=== PATIENT | male | born 1980 ===

== ENCOUNTER 2017-05-28 08:47 | Inpatient (IN) | payer OTHER ==
[2017-05-28] MEDS ORDERED: Sodium Chloride 0.9% 1,000 ML IV ONE (09:21)
--- NOTE | 2017-05-28 09:22 | C.PDOC ---
History Of Present Illness 36 y/o male presents to ED with c/o abdominal pain starting at 0200 today. Patient reports pain started in the epigastric area and was associated with nausea. Patient states pain gradually worsened and is now located in RLQ. Denies vomiting, diarrhea, or constipation. Patient states he could not fully void when urinating. Denies any groin pain. Time Seen by Provider: 05/28/17 09:07 Chief Complaint (Nursing): Abdominal Pain History Per: Patient History/Exam Limitations: no limitations Onset/Duration Of Symptoms: Days Current Symptoms Are (Timing): Still Present Location Of Pain/Discomfort: RLQ Radiation Of Pain To:: None Quality Of Discomfort: "Pain" Associated Symptoms: Urinary Symptoms. denies: Fever, Chills, Vomiting, Diarrhea, Back Pain Recent travel outside of the [place]: No Past Medical History Reviewed: Historical Data, Nursing Documentation, Vital Signs Vital Signs: Last Vital Signs Temp 98.3 F 05/28/17 13:10 Pulse 72 05/28/17 13:10 Resp 16 05/28/17 13:10 BP 125/80 05/28/17 13:10 Pulse Ox 98 05/28/17 13:17 - Medical History PMH: No Chronic Diseases Surgical History: No Surg Hx Family History: States: Unknown Family Hx - Social History Hx Alcohol Use: Yes Hx Substance Use: No - Immunization History Hx Tetanus Toxoid Vaccination: (unk) Hx Influenza Vaccination: No Hx Pneumococcal Vaccination: (unk) Review Of Systems Except As Marked, All Systems Reviewed And Found Negative. Constitutional: Negative for: Fever, Chills Cardiovascular: Negative for: Chest Pain Respiratory: Negative for: Cough, Shortness of Breath, Wheezing Gastrointestinal: Positive for: Abdominal Pain. Negative for: Vomiting, Diarrhea Genitourinary: Negative for: Dysuria, Frequency, Hematuria, Scrotal Pain Skin: Negative for: Rash Physical Exam - Physical Exam Appears: Non-toxic, No Acute Distress Skin: Normal Color, Warm, Dry Head: Atraumatic, Normacephalic Eye(s): bilateral: Normal Inspection Oral Mucosa: Moist Neck: Normal ROM Chest: Symmetrical Cardiovascular: Rhythm Regular, No Murmur Respiratory: Normal Breath Sounds, No Rales, No Rhonchi, No Wheezing Gastrointestinal/Abdominal: Bowel Sounds (active), Soft, Tenderness (RLQ), No Distention, No Guarding, No Rebound Back: Normal Inspection, No CVA Tenderness Male Genital: Normal Inspection, No Testicular Swelling, No Scrotal Swelling Extremity: Bilateral: Atraumatic, Normal Color And Temperature, Normal ROM Neurological/Psych: Oriented x3, Normal Speech Gait: Steady ED Course And Treatment - Laboratory Results Result Diagrams: 05/28/17 09:53 05/28/17 09:53 Lab Interpretation: No Acute Changes O2 Sat by Pulse Oximetry: 98 (RA) Pulse Ox Interpretation: Normal - CT Scan/US CT ABDOMEN/PELVIS Other Rad Studies (CT/US): Read By Radiologist, Radiology Report Reviewed CT/US Interpretation: FINDINGS: LOWER THORAX: Mild bibasilar atelectasis. No evidence of basilar effusion or pneumothorax. There is a small hiatal hernia. Heart size is borderline/ mildly enlarged. No significant pericardial effusion. LIVER: Liver is enlarged measuring nearly 20 cm in CC dimension. No obvious hepatic mass collection or calcification. Mild fatty hepatic infiltration. Portal and splenic veins are opacified. GALLBLADDER AND BILE DUCTS: Gallbladder is physiologically distended. No evidence of intraluminal gallbladder calculi. PANCREAS: The pancreas appears grossly unremarkable without mass collection calcification. Pancreatic duct is visible but does not appear significantly dilated. SPLEEN: Spleen exhibits normal size and attenuation pattern without mass collection or calcification. ADRENALS: There are no adrenal lesions. KIDNEYS AND URETERS: Kidneys exhibit symmetric nephrograms. No evidence of nephrolithiasis or hydronephrosis. BLADDER: Urinary bladder is incompletely distended which may account for minimal thick- walled appearance. Muscular hypertrophy may contribute. Cystitis should be excluded given the patient's history of painful urination. REPRODUCTIVE: Prostate gland exhibits normal size measuring approximately 3.3 cm in transverse dimension. APPENDIX: . There is an approximately at 8.8 by 5.6 mm elliptical shaped appendicolith within the distal aspect of the appendix with what appears to represent mild wall thickening - wall edema at and dilatation within the distal tip of the appendix, (distal to the appendix). The at tip of the appendix measures approximately 12.7 mm in greatest dimension. Findings most consistent with mild early acute appendicitis. Note these findings were discussed with JORGE Barber at approximately 11:50 a.m. with written down and read back verification. BOWEL: Aeration of the bowel is limited due to the lack of oral contrast material. Stomach is incompletely distended which may account for slight thick-walled appearance. . Visualized loops of small bowel exhibit normal contour and caliber. No evidence acute mechanical small bowel obstruction. Moderate amount of stool is seen within cecum and ascending colon suggesting mild fecal retention. PERITONEUM: Unremarkable. No fluid collection. No free air. Tiny a fat containing umbilical hernia. . Small bilateral fat containing inguinal hernias. Mild diastases of the abdominus rectus musculature. LYMPH NODES: Unremarkable. No enlarged lymph nodes. VASCULATURE: Unremarkable. No aortic aneurysm. BONES: No fracture or destructive lesion. OTHER FINDINGS: None. IMPRESSION: Findings consistent with mild early acute appendicitis cyst within the head as above. Hepatomegaly. Mild fatty hepatic infiltration. 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 Patient for Dr Alcaraz service Disposition - Disposition Disposition: HOSPITALIZED Disposition Time: 12:08 Condition: STABLE - POA Present On Arrival: None - Clinical Impression Clinical Impression: Appendicitis - PA / HOGSHEAD DUMPER / Resident Statement MD/DO has reviewed & agrees with the documentation as recorded. - Scribe Statement The provider has reviewed the documentation as recorded by the Tysonibkinsey LIMON All medical record entries made by the Jake were at my direction and personally dictated by me. I have reviewed the chart and agree that the record accurately reflects my personal performance of the history, physical exam, medical decision making, and the department course for this patient. I have also personally directed, reviewed, and agree with the discharge instructions and disposition. Decision To Admit - Pt Status Changed To: Hospital Disposition Of: Inpatient - Admit Certification Admit to Inpatient:: After my assessment, the patient will require hospitalization for at least two midnights. This is because of the severity of symptoms shown, intensity of services needed, and/or the medical risk in this patient being treated as an outpatient. - InPatient: Physician Admission Certification:: patient with acute appendicitis requires surgical intervention - . Bed Request Type: Regular Admitting Physician: Dayn Alcaraz Patient Diagnosis: Appendicitis
[2017-05-28] MEDS ORDERED: Sodium Chloride 0.9% 1,000 ML ONE ×2 (09:54→12:41)
[2017-05-28 10:02] LABS: BASO % 0.4 % (0.0-2.0); EOS % 0.4 % (0.0-4.0); LYMPH # 1.3 K/uL (1.0-4.3); LYMPH % 12.9 % (20.0-40.0); MEAN CELL VOLUME 91.6 fL (80.0-94.0); MEAN CORPUSCULAR HEMOGLOBIN 30.9 pg (27.0-31.0); MEAN CORPUSCULAR HGB CONC 33.7 g/dL (33.0-37.0); MEAN PLATELET VOLUME 7.9 fL (7.2-11.7); MONO # 0.7 K/uL (0.0-0.8); MONO % 6.7 % (0.0-10.0); NEUT # 7.8 K/uL (1.8-7.0); NEUT % 79.6 % (50.0-75.0); RBC 4.86 Mil/uL (4.40-5.90); RED CELL DISTRIBUTION WIDTH 13.9 % (11.5-14.5); WHITE BLOOD COUNT 9.8 K/uL (4.8-10.8)
[2017-05-28 10:09] LABS: ALBUMIN 4.4 g/dL (3.5-5.0)
[2017-05-28 10:11] LABS: URINE BILIRUBIN NEGATIVE (NEGATIVE); URINE BLOOD 2+ (NEGATIVE); URINE CLARITY Clear (Clear); URINE COLOR Yellow (YELLOW); URINE GLUCOSE (UA) NORMAL (Normal); URINE LEUKOCYTE ESTERASE NEG Leu/uL (Negative); URINE NITRATE NEGATIVE (NEGATIVE); URINE PROTEIN NEGATIVE (NEGATIVE); URINE UROBILINOGEN NORMAL mg/dL (0.2-1.0)
[2017-05-28 10:12] LABS: GFR AFRICAN-AMERICAN > 60; GFR NON-AFRICAN AMERICAN > 60
[2017-05-28 10:13] LABS: ALB/GLOB RATIO 1.2 (1.0-2.1); ALT/SGPT 248 U/L (21-72); AST/SGOT 93 U/L (17-59); BLOOD UREA NITROGEN 14 mg/dL (9-20); CALCIUM 9.7 mg/dl (8.6-10.4); LIPASE 41 U/L (23-300)
[2017-05-28] MEDS ORDERED: Iohexol 300 100 ML IJ ONE (11:07)
--- NOTE | 2017-05-28 11:57 | CT ---
PROCEDURE: CT scan abdomen and pelvis dated 05/28/2017 HISTORY: Right lower quadrant abdominal pain. Technologist notation indicates right-sided flank pain and painful urination. COMPARISON: No prior TECHNIQUE: Contiguous axial images of the abdomen and pelvis performed following intravenous injection of 100 cc of Omnipaque 300 contrast material. . Coronal and Sagittal reformats generated. Radiation dose: Total exam DLP = 978.65 mGy-cm. This CT exam was performed using one or more of the following dose reduction techniques: Automated exposure control, adjustment of the mA and/or kV according to patient size, and/or use of iterative reconstruction technique. FINDINGS: LOWER THORAX: Mild bibasilar atelectasis. No evidence of basilar effusion or pneumothorax. There is a small hiatal hernia. Heart size is borderline/ mildly enlarged. No significant pericardial effusion. LIVER: Liver is enlarged measuring nearly 20 cm in CC dimension. No obvious hepatic mass collection or calcification. Mild fatty hepatic infiltration. Portal and splenic veins are opacified. GALLBLADDER AND BILE DUCTS: Gallbladder is physiologically distended. No evidence of intraluminal gallbladder calculi. PANCREAS: The pancreas appears grossly unremarkable without mass collection calcification. Pancreatic duct is visible but does not appear significantly dilated SPLEEN: Spleen exhibits normal size and attenuation pattern without mass collection or calcification. ADRENALS: There are no adrenal lesions. KIDNEYS AND URETERS: Kidneys exhibit symmetric nephrograms. No evidence of nephrolithiasis or hydronephrosis. BLADDER: Urinary bladder is incompletely distended which may account for minimal thick-walled appearance. Muscular hypertrophy may contribute. Cystitis should be excluded given the patient's history of painful urination. REPRODUCTIVE: Prostate gland exhibits normal size measuring approximately 3.3 cm in transverse dimension. APPENDIX: . There is an approximately at 8.8 by 5.6 mm elliptical shaped appendicolith within the distal aspect of the appendix with what appears to represent mild wall thickening - wall edema at and dilatation within the distal tip of the appendix, (distal to the appendix). The at tip of the appendix measures approximately 12.7 mm in greatest dimension. Findings most consistent with mild early acute appendicitis. Note these findings were discussed with JORGE Barber at approximately 11:50 a.m. with written down and read back verification. BOWEL: Aeration of the bowel is limited due to the lack of oral contrast material. Stomach is incompletely distended which may account for slight thick-walled appearance. . Visualized loops of small bowel exhibit normal contour and caliber. No evidence acute mechanical small bowel obstruction. Moderate amount of stool is seen within cecum and ascending colon suggesting mild fecal retention. PERITONEUM: Unremarkable. No fluid collection. No free air. Tiny a fat containing umbilical hernia. . Small bilateral fat containing inguinal hernias. Mild diastases of the abdominus rectus musculature LYMPH NODES: Unremarkable. No enlarged lymph nodes. VASCULATURE: Unremarkable. No aortic aneurysm. BONES: No fracture or destructive lesion. OTHER FINDINGS: None. IMPRESSION: Findings consistent with mild early acute appendicitis cyst within the head as above. Hepatomegaly. Mild fatty hepatic infiltration. Mild diastases of the abdominus rectus musculature
--- NOTE | 2017-05-28 12:25 | CP.PCM.HP ---
History of Present Illness - History of Present Illness History of Present Illness: HISTORY AND PHYSICAL FOR KENJIEMMA 36M presents to [facility] for abdominal pain that started 2am 05/28/17. Patient states the pain is epigastric and but is now subdue and in the RLQ. Patient denies nausea and vomiting, denies fevers, chills. Admits to on episode of diarrhea. He has never had this type of pain before. Patient last ate at 7am. PMH: denies PSH: denies Social: admits to smoking and drinking alcohol socially Allergies: NKDA Present on Admission - Present on Admission Any Indicators Present on Admission: No Past Patient History - Past Social History Smoking Status: Light Smoker < 10 Cigarettes Daily - PSYCHIATRIC Hx Substance Use: No - SURGICAL HISTORY Hx Surgeries: No - ANESTHESIA Hx Anesthesia: No Meds Allergies/Adverse Reactions: Allergies Allergy/AdvReac Type Severity Reaction Status Date / Time No Known Allergies Allergy Unverified 05/28/17 09:07 Physical Exam - Constitutional Appears: Non-toxic, No Acute Distress - Head Exam Head Exam: ATRAUMATIC - Eye Exam Eye Exam: EOMI, PERRL - ENT Exam ENT Exam: Mucous Membranes Moist - Respiratory Exam Respiratory Exam: Clear to Auscultation Bilateral, NORMAL BREATHING PATTERN - Cardiovascular Exam Cardiovascular Exam: REGULAR RHYTHM, +S1, +S2 - GI/Abdominal Exam GI & Abdominal Exam: Soft, Tenderness (RLQ tenderness). absent: Distended, Firm , Guarding, Rebound, Rigid - Extremities Exam Extremities exam: Negative for: pedal edema, tenderness - Neurological Exam Neurological exam: Alert, Oriented x3 - Psychiatric Exam Psychiatric exam: Normal Affect, Normal Mood - Skin Skin Exam: Dry, Intact, Normal Color, Warm Results - Vital Signs Recent Vital Signs: Last Vital Signs Temp 97.5 F L 05/28/17 09:01 Pulse 72 05/28/17 09:01 Resp 20 05/28/17 09:01 BP 159/94 H 05/28/17 09:01 Pulse Ox 98 05/28/17 12:09 - Labs Result Diagrams: 05/28/17 09:53 05/28/17 09:53 Assessment & Plan - Assessment and Plan (Free Text) Assessment: 36M presents with acute appendicitis CT: large appendicolith, inflamed appendix Plan: - NPO, pain control - Anti-emetic, Anti-biotics - PT/PTT, Type and screen - Booked and consented for lap appendectomy possible open today afternoon Discussed with Dr. Lissa Newman, PGY1
[2017-05-28 12:33] LABS: PROTHROMBIN TIME 11.6 SECONDS (9.7-12.2)
[2017-05-28] MEDS ORDERED: Morphine 4 MG/ML VIAL IVP PRN (12:37)
[2017-05-28] MEDS: Piperacillin/Tazobact 3.375 GM in Sodium Chloride 100 ML IVPB SCH ×2 (12:40→20:09)
[2017-05-28] MEDS: Sodium Chloride 0.9% 1,000 ML IV SCH ×2 (12:40→20:08)
[2017-05-28] MEDS ORDERED: Piperacillin/Tazobact 3.375 gm 100 ML IVPB ONE (12:41)
[2017-05-28] MEDS ORDERED: ceFAZolin IV 1 gm in Dextrose 1 GM/50 ML BAG IVPB ONE (17:26)
[2017-05-28] MEDS ORDERED: Bupivacaine-Epi 0.5%-1:200,000 PF Inj ONE (17:26)
[2017-05-28] MEDS ORDERED: Lactated Ringer's 1,000 ML IV ONE ×2 (17:30→18:15)
[2017-05-28] MEDS ORDERED: Midazolam 2 MG/2 ML VIAL ONE (17:34)
[2017-05-28] MEDS ORDERED: Propofol 10 mg/ml Inj (20 ML) ONE (17:35)
[2017-05-28] MEDS ORDERED: Succinylcholine Chloride 20 mg/ml Syr (5 ml) IV ONE (18:37)
[2017-05-28] MEDS ORDERED: Rocuronium 10 mg/ml (5 ml) ONE (18:37)
[2017-05-28] MEDS ORDERED: HYDROmorphone 0.5 mg/0.5 ml ISec IVP PRN (18:39)
--- NOTE | 2017-05-28 18:39 | PCM.SURG1 ---
Surgeon's Initial Post Op Note - Surgeon's Notes Surgeon: Lissa Dean Of Men: Benson Newman Pre-Operative Diagnosis: Acute appendicitis Operative Findings: inflamed appendix Post-Operative Diagnosis: acute appendicitis Operation Performed: laparoscopic appendectomy Specimen/Specimens Removed: appendix Estimated Blood Loss: EBL {In ML}: 15 Date of Surgery/Procedure: 05/28/17 Time of Surgery/Procedure: 17:45
[2017-05-28] MEDS: Lactated Ringer's 1,000 ML IV SCH (20:09)
[2017-05-29] MEDS: Lactated Ringer's 1,000 ML IV SCH (03:32)
[2017-05-29] MEDS: Piperacillin/Tazobact 3.375 GM in Sodium Chloride 100 ML IVPB SCH ×2 (03:53→13:27)
[2017-05-29 08:42] VITALS: BP 102/58; PULSE 89; RESP 18; TEMP 98.4; O2SAT 95
[2017-05-29] MEDS ORDERED: Lactated Ringer's 1,000 ML IV SCH (09:14)
[2017-05-29] MEDS ORDERED: Oxycodone/Acetaminophen 5/325 mg Tab PO PRN (09:14)
--- NOTE | 2017-05-29 22:07 | CP.PCM.DIS ---
Provider - Provider Date of Admission: 05/28/17 12:09 Attending physician: Dany Alcaraz MD Primary care physician: None Consults: None Time Spent in preparation of Discharge (in minutes): 60 Diagnosis - Discharge Diagnosis (1) S/P appendectomy Status: Acute Hospital Course - Lab Results Lab Results: Most Recent Lab Values WBC 9.8 K/uL (4.8-10.8) 05/28/17 09:53 RBC 4.86 Mil/uL (4.40-5.90) 05/28/17 09:53 Hgb 15.0 g/dL (12.0-18.0) 05/28/17 09:53 Hct 44.5 % (35.0-51.0) 05/28/17 09:53 MCV 91.6 fL (80.0-94.0) 05/28/17 09:53 MCH 30.9 pg (27.0-31.0) 05/28/17 09:53 MCHC 33.7 g/dL (33.0-37.0) 05/28/17 09:53 RDW 13.9 % (11.5-14.5) 05/28/17 09:53 Plt Count 244 K/uL (130-400) 05/28/17 09:53 MPV 7.9 fL (7.2-11.7) 05/28/17 09:53 Neut % (Auto) 79.6 % (50.0-75.0) H 05/28/17 09:53 Lymph % (Auto) 12.9 % (20.0-40.0) L 05/28/17 09:53 [place] % (Auto) 6.7 % (0.0-10.0) 05/28/17 09:53 Eos % (Auto) 0.4 % (0.0-4.0) 05/28/17 09:53 Baso % (Auto) 0.4 % (0.0-2.0) 05/28/17 09:53 Neut # 7.8 K/uL (1.8-7.0) H 05/28/17 09:53 Lymph # 1.3 K/uL (1.0-4.3) 05/28/17 09:53 [place] # 0.7 K/uL (0.0-0.8) 05/28/17 09:53 Eos # 0.0 K/uL (0.0-0.7) 05/28/17 09:53 Baso # 0.0 K/uL (0.0-0.2) 05/28/17 09:53 PT 11.6 SECONDS (9.7-12.2) 05/28/17 12:15 INR 1.0 05/28/17 12:15 APTT 33 SECONDS (21-34) 05/28/17 12:15 Sodium 136 mmol/L (132-148) 05/28/17 09:53 Potassium 3.9 mmol/L (3.6-5.2) 05/28/17 09:53 Chloride 99 mmol/L (98-107) 05/28/17 09:53 Carbon Dioxide 25 mmol/L (22-30) 05/28/17 09:53 Anion Gap 16 (10-20) 05/28/17 09:53 BUN 14 mg/dL (9-20) 05/28/17 09:53 Creatinine 0.7 MG/DL (0.8-1.5) L 05/28/17 09:53 Est GFR ( Amer) > 60 05/28/17 09:53 Est GFR (Non-Af Amer) > 60 05/28/17 09:53 Random Glucose 113 mg/dL (75-110) H 05/28/17 09:53 Calcium 9.7 mg/dl (8.6-10.4) 05/28/17 09:53 Total Bilirubin 0.7 mg/dL (0.2-1.3) 05/28/17 09:53 AST 93 U/L (17-59) H 05/28/17 09:53 ALT 248 U/L (21-72) H 05/28/17 09:53 Alkaline Phosphatase 113 U/L (38-126) 05/28/17 09:53 Total Protein 8.0 g/dL (6.3-8.3) 05/28/17 09:53 Albumin 4.4 g/dL (3.5-5.0) 05/28/17 09:53 Globulin 3.5 gm/dL (2.2-3.9) 05/28/17 09:53 Albumin/Globulin Ratio 1.2 (1.0-2.1) 05/28/17 09:53 Lipase 41 U/L (23-300) 05/28/17 09:53 Urine Color Yellow (YELLOW) 05/28/17 09:53 Urine Clarity Clear (Clear) 05/28/17 09:53 Urine pH 5.0 (5.0-8.0) 05/28/17 09:53 Ur Specific [place] 1.017 (1.003-1.030) 05/28/17 09:53 Urine Protein Negative mg/dL (NEGATIVE) 05/28/17 09:53 Urine Glucose (UA) Normal mg/dL (Normal) 05/28/17 09:53 Urine Ketones Negative mg/dL (NEGATIVE) 05/28/17 09:53 Urine Blood 2+ (NEGATIVE) H 05/28/17 09:53 Urine Nitrate Negative (NEGATIVE) 05/28/17 09:53 Urine Bilirubin Negative (NEGATIVE) 05/28/17 09:53 Urine Urobilinogen Normal mg/dL (0.2-1.0) 05/28/17 09:53 Ur Leukocyte Esterase Neg Tomi/uL (Negative) 05/28/17 09:53 Urine WBC (Auto) < 1 /hpf (0-5) 05/28/17 09:53 Urine RBC (Auto) 8 /hpf (0-3) H 05/28/17 09:53 Blood Type O POSITIVE 05/28/17 13:09 Antibody Screen Negative 05/28/17 13:09 - Hospital Course Hospital Course: 36M admitted on 05/28 due to acute appendicitis. Pt taken to OR on 05/28 for appendectomy. Pt tolerated procedure well. No complications. POD#1 s/p appendectomy pt stable and ready for discharge home. Pt given pain prescription and work note for 2 weeks off to recuperate. - Date & Time of H&P Date of H&P: 05/28/17 Time of H&P: 12:21 Discharge Exam - Head Exam Head Exam: ATRAUMATIC, NORMAL INSPECTION, NORMOCEPHALIC - Eye Exam Eye Exam: EOMI, Normal appearance - Neck Exam Neck exam: Full Rom, Normal Inspection - Respiratory Exam Respiratory Exam: Clear to PA & Lateral, NORMAL BREATHING PATTERN, UNREMARKABLE - Cardiovascular Exam Cardiovascular Exam: REGULAR RHYTHM, +S1, +S2 - GI/Abdominal Exam GI & Abdominal Exam: Hypoactive Bowel Sounds, Soft, Tenderness (along surgical incisions). absent: Distended (obese), Firm, Guarding, Hernia, Rigid - Extremities Exam Extremities exam: full ROM, normal inspection - Neurological Exam Neurological exam: Alert, CN II-XII Intact, Oriented x3 - Psychiatric Exam Psychiatric exam: Normal Affect, Normal Mood - Skin Skin Exam: Dry, Normal Color, Warm Additional comments: abdominal surgical incision sites with dressings in place, C/D/I, no strike through Discharge Plan - Follow Up Plan Condition: STABLE Disposition: HOME/ ROUTINE Additional Instructions: Patient cleared for discharge home as per Dr. Alcaraz. Patient is to keep dressings on wounds for 2 days, ok to remove dressings in 2 days and shower. Gently clean wounds with soap and water. Patient has steri-strips in place, ok to gently clean over them, these are special bandages that will fall off on their own. Do not remove them. Please follow up with Dr. Alcaraz in his office in 7-10 days after discharge from hospital. Patient has been provided with a prescription for pain medication and a work note excusing him from work until June 11. If you have excessive bleeding, fevers, or recurrence of intolerable pain, please return to hospital for evaluation.
--- NOTE | 2017-06-11 20:38 | PCM.OP ---
Operative Report - Operative Report Date of Surgery/Procedure: 05/28/17 Time of Surgery/Procedure: 12:59 Surgeon: chaka Anesthesia/Sedation: general Pre-Operative Diagnosis: Acute appendicitis Post-Operative Diagnosis: Acute appendicitis Indication for Surgery: Acute appendicitis Operative Findings: Appendix was markedly inflamed, it was gangrenous by the midpoint, and no perforation was noted. The procedure was under general anesthesia, patient was prepared and draped in sterile fashion. CO2 was insufflated through a veress needle inserted in the umbilicus. A 12-mm trocar was then inserted around the same area and then under direct placement a 5 mm suprapubic port and a 5 mm left lower quadrant port were inserted. Patient was placed in a Trendelenburg position and was turned over towards the left side. The appendix was identified, the initial appendix was secured with the white han and the patient's appendix was secured with blue han. The appendix with the mesentery was inflation and the catch bag was extracted through the umbilical cord. No bleeding was noted, area was irrigated with large amount of saline solution. CO2 was allowed to escape the peritoneal cavity, the trocars were then removed and the wound was closed in a routine fashion. Procedure/Operation Description: Laparoscopic appendectomy Estimated Blood Loss: 9 cc Blood Replaced: no Sponge/Instrument Count: correct Drains: none Complications: Nononene Specimen: appendix Discharge & Condition: No complications
== END 2017-05-29 15:35 | disposition home or self-care (01) | DRG 883 ==
LOC: C.ER 08:47 → C.9OBSV 09:21 → OBSVTOIN 12:09 → C.9E 12:09 → C.6T 12:48
PROVIDERS: ADMIT Surgery; ATTEND Surgery
PROC: 0DTJ4ZZ Resection of Appendix, Percutaneous Endoscopic Approach (ICD-10-PCS; principal; 2017-05-28 12:30)
DX: K35.80 Unspecified acute appendicitis (principal)